=== PATIENT | female | born 2005 | race Caucasian/White ===

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

== ENCOUNTER 2024-05-07 15:25 | Outpatient (CLI) | payer BC | END 2024-05-07 15:26 | disposition home or self-care (01) | LOC: SCSRAD 15:25 | PROVIDERS: ATTEND Physician Assistant | DX: M25.571 Pain in right ankle and joints of right foot (principal) ==